=== PATIENT | female | born 1975 | race Hispanic/Latino ===

== ENCOUNTER 2016-06-11 15:46 | Emergency (ER) | payer OTHER ==
[~2016-06-11] VITALS: Ht 147.3 cm; Wt 74.8 kg
[~2016-06-11 15:46] MED LIST: CORTISPORIN 1%-10 M1 OT; DICYCLOMINE HCL10 MG PO; FLU VACCINE 0.0.5 ML IM; KEFLEX500 MG PO; LATUDA40 MG PO; LITHIUM CARBON300 M3 PO; LORAZEPAM1 MG PO; MIRTAZAPINE45 MG PO; PANTOPRAZOLE SO40 MG PO; PREDNISONE 20MG20 MG PO; ROBITUSSIN W/CO10 ML PO; TESSALON PERLE100 MG PO; ZITHROMAX Z-PA250 M1 PO; ZOFRAN 4 MG TABL4 MG PO
[2016-06-11 15:57] VITALS: BP 124/84
[2016-06-11] MEDS ORDERED: PERCOCET 5-3251 EACH PO (16:28)
[2016-06-11] MEDS ORDERED: MEDROL4 M2 PO (16:28)
[2016-06-11] MEDS ORDERED: CYCLOBENZAPRINE10 M1 PO (16:28)
--- NOTE | 2016-06-11 16:29 | ED NECK/BACK PAIN COMPLAINT ---
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 Exam Limitations: language barrier (daughter interpreting) Vital Signs & Intake/Output Vital Signs & Intake/Output Vital Signs Date Time Temp Pulse Resp B/P Pulse O2 O2 Flow FiO2 Ox Delivery Rate 06/11 1557 97.3 87 20 124/84 97 Room Air Allergies Coded Allergies: NO KNOWN ALLERGIES (06/11/16) Reconcile Medications Azithromycin (Zithromax Z-Isaias) 250 MG CAP 1 TAB PO DAILY INFN TAKE 2 TABLETS INITIALLY THEN 1 TABLET DAILY FOR 4 MORE DAYS Benzonatate (Tessalon Perle) 100 MG SGL 1 CAP PO TID PRN COUGH Cephalexin (Keflex) 500 MG CAPSULE 1 CAP PO BID uti Cyclobenzaprine HCl 10 MG TABLET 1 TAB PO TID PRN spasm Dicyclomine Hydrochloride (Dicyclomine HCl) 10 MG CAP 1 CAP PO TID GI ( Reported) Flu Vaccine (Flu Vaccine 0.5 Ml (NORVATIS)) 0.5 ML SYR 0.5 ML IM ONCE VACCINE (Reported) Hc/Neomycin Sulf/Polymyxin B (Cortisporin 1%-0.35%-60531 U/Ml 10 Ml) 10 ML SHA 3 GTT OT 4 TIMES/DAY INFECTION Montaqua Carbonate (Montaqua Carbonate 300MG Tab.) 300 MG CAPSULE 1 CAP PO BID DEPRESSION (Reported) Lorazepam 1 MG TABLET 1 TAB PO BID ANXIETY (Reported) LURASIDONE HCL (Latuda) 40 MG TABLET 1 TAB PO QPM DEPRESSION (Reported) Methylprednisolone. (Medrol) 4 MG TAB.DS.PK 1 DP PO AD inflammation 6 on day 1 then reduce by one tablet daily until gone Mirtazapine 45 MG TAB 1 TAB PO QPM DEPRESSION (Reported) Ondansetron (Zofran 4 MG Tablet) 4 MG TAB 1 TAB PO Q8 PRN NAUSEA Oxycodone HCl/Acetaminophen (Percocet 5-325 MG Tablet) 5 MG-325 MG TABLET 1 TAB PO TID PRN pain Pantoprazole Sodium 40 MG TABLET.DR 1 TAB PO DAILY AC GI (Reported) Prednisone 20 MG TAB 2 TAB PO DAILY COUGH Robitussin AC (Guaifenesin-Codeine Syrup) 200 MG-20 MG/10 ML LIQUID 2 TSP PO Q6 PRN COUGH Triage Note: TRIAGE: PT TO ER C/C PAIN TO LOW BACK X 3 WEEKS WITH RADIATION TO L LEG SINCE SUNDAY. HAS BEEN TO MD X 3 BUT "ALLS THEY DO IS GIVE ME PILLS". DAUGHTER STATES SUNDAY THEY DID AN ULTRASOUND OF THE BACK AND WAS TOLD THEY WOULD CALL WITHIN 24 HOURS WITH REPORT BUT THEY NEVER DID. STATES THEY DID THE U/S TO R/O KIDNEY STONES. PT MOSTLY SLOVENIAN SPEAKING, DAUGHTER ASSISTS WITH TRANSLATIONS. Triage Nurses Notes Reviewed? yes : No Patient currently breastfeeds: No HPI: 40-year-old female with atraumatic left lower back pain is benign for 3 weeks and now has radiated pain down to the left lateral hip lower leg to the left lateral knee region. Patient saw her primary care doctor for this with him and she was having a kidney stone, ordered an outpatient renal ultrasound which I reviewed and was negative. Patient is taking [id number] pain medication without relief. Of note, I reviewed her previous records and the lumbar spine report from 2011 when she was having low back pain at that time and it does show a left-sided lower lumbar herniated disc. She went through physical therapy for this and his symptoms resolved. She has intermittent back pain since then. She has had no recent trauma or injury, no numbness or weakness. Pain is worse with walking and with moving the left leg and bending forward. (JL ARTEAGA) Past History Travel History Traveled to [place] past 21 day No Medical History Any Pertinent Medical History? 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 No (JL ARTEAGA) Review of Systems Review of Systems Constitutional: Reports: see HPI. Eyes: Reports: no symptoms. Ears, Nose, Throat, Mouth: Reports: no symptoms. Respiratory: Reports: no symptoms. Cardiovascular: Reports: no symptoms. Gastrointestinal/Abdominal: Reports: no symptoms. Musculoskeletal: Reports: see HPI. Skin: Reports: no symptoms. Neurological/Psychological: Reports: no symptoms. All Other Systems: Reviewed and Negative (JL ARTEAGA) Physical Exam Physical Exam Neck: normal inspection, supple, full range of motion, normal alignment Comments: Well-developed well-nourished no apparent distress. HEENT: Atraumatic, extraocular motion intact Neck: Supple, no lymphadenopathy Back: Tenderness to the paravertebral musculature on the left side lower lumbar region with mild spasming noted. No midline tenderness. No deformity or signs of trauma. There is no rashes present. Range of motion is limited secondary to pain Straight leg raise is positive on the left at 60. Well straight leg raise of the right leg causes left-sided low back pain.. Bilateral lower extremities are neurovascularly intact with sensation and motor grossly intact. Gait is antalgic. Respiratory: No respiratory distress Abdomen: Soft nontender nondistended Extremities: No edema, full range of motion Neuro: Alert and oriented x3 Psych: Mood affect normal, normal memory normal judgment. Skin: Warm and dry, no rash on exposed skin (JL ARTEAGA) Progress Differential Diagnosis: AAA, aortic dissection, C spine injury, carotid dissection, cauda equina syn, herniated disc, myofascial strain, pyelo/UTI, sciatica, spinal cord inj, thoracic outlet syn, T/L spine injury, ureterolithiasis Plan of Care: Current Medications Sig/Leland Start time Last Medication Dose Stop Time Status Admin Ibuprofen 600 MG ONCE ONE 06/11 1630 UNVr (Motrin) 06/11 1631 Comments: We will place her on a Medrol Dosepak if her pain medication and muscle relaxers and recommend neurosurgery consultation. As outpatient a repeat MRI should be considered and possible lumbar epidural steroid injection, I feel as though this is related to her low back herniated disc from 2011 and she is having sciatic symptoms because of this. I do not feel so she requires any repeat imaging on an emergent basis. (JL ARTEAGA) Departure Departure Disposition: HOME OR SELF CARE Condition: Stable Clinical Impression Primary Impression: Sciatica of left side due to displacement of lumbar intervertebral disc Referrals: REINA LAKE,CHANDA MESA (PCP/Family) Additional Instructions: Take medications for pain, spasm and inflammation as needed. Rest, warm compresses, gentle stretching. Follow-up with neurosurgeon for reevaluation and treatment of your back pain which is likely due to a herniated disc. You may need a lumbar epidural steroid injection for treatment of this. If she cannot see the neurosurgeon due to insurance purposes, please follow-up with your primary care doctor so they can arrange follow-up for your. Watch for worsening symptoms of pain, numbness or weakness down the leg, return with any concerns. Departure Forms: Customer Survey General Discharge Information Prescriptions: Current Visit Scripts Oxycodone HCl/Acetaminophen (Percocet 5-325 MG Tablet) 1 TAB PO TID PRN pain #15 TAB Methylprednisolone. (Medrol) 1 DP PO AD #1 DP 6 on day 1 then reduce by one tablet daily until gone Cyclobenzaprine HCl 1 TAB PO TID PRN spasm #15 TAB (JL ARTEAGA) PA/CIVIL ATTORNEY Co-Sign Statement Statement: ED Attending supervision documentation- [] I saw and evaluated the patient. I have also reviewed all the pertinent lab results and diagnostic results. I agree with the findings and the plan of care as documented in the PA's/CIVIL ATTORNEY's documentation. [X] I have reviewed the ED Record and agree with the PA's/CIVIL ATTORNEY's documentation. [] Additions or exceptions (if any) to the PAs/CIVIL ATTORNEY's note and plan are summarized below: [] (HEATHER LAKE,NICHOLAS Patton)
== END 2016-06-11 16:37 ==
LOC: ERH 15:46
DX: M51.16 Intervertebral disc disorders with radiculopathy, lumbar region (principal)